=== PATIENT | female | born 1955 | race Caucasian/White ===

== ENCOUNTER → 2017-07-13 | Outpatient (CLI) | payer OTHER ==
[~2017-07-13] MED LIST: LISINOPRIL10 MG; METOPROLOL TAR25 MG
--- NOTE | ~2017-07-13 | MY29 ---
[facility] A Service of [facility] RADIOLOGY TEXT RESULTS PATIENT: LIZA JAVIER LOCATION: [facility] : 57 UNIT #: [id number] AGE: [address]: Mindy Woodruff MD SEX: F ORDER DR: [id number] [facility] [address] [place], [place] [address] [id number] O MR#: [id number] #: [id number] NAME: LIZA JAVIER : 1955 SEX: F STUDY DATE/TIME: 07/13/2017 14:03 UNIT: [facility] ROOM: STUDY DESCRIPTION: MY HUGH SCREENING W/ CAD BILAT Attending Physician: Mindy Woodruff M.D. Referring Physician: Mindy Woodruff M.D. Ordering Physician: Mindy Woodruff M.D. Primary Care Physician: Mindy Woodruff M.D. MEDICAL IMAGING REPORT This report is preliminary unless electronic signature is present EXAM Digital screening mammogram, 07/13/2017, [facility]. HISTORY 61-year-old woman, no risk elevation. Annual screen. COMPARISON Comparison mammograms date to 12/31/2006 with most recent 05/19/2016. FINDINGS Digital imaging of each breast was completed utilizing a two-view examination of each breast in craniocaudal and mediolateral-oblique projections. Review and interpretation of digital mammograms include a second review in conjunction with FDA-approved CAD device. There is a normal parenchymal presentation bilaterally consistent with the patient's age. There are no breast masses imaged and no parenchymal asymmetry is visualized. There are no suspicious microcalcifications and I see no focal architectural disturbance. IMPRESSION Negative screening digital mammogram. One-year followup recommended. Patients over the age of 40 are entered into a reminder system with target due date for the next mammogram. A result letter will also be sent to the patient. BIRADS: 1 Negative. ADDENDUM Breast parenchyma is fatty replaced. [facility] A Service of [facility] RADIOLOGY TEXT RESULTS PATIENT: LIZA JAVIER LOCATION: [facility] : 57 UNIT #: [id number] AGE: [address]: Mindy Woodruff MD SEX: F ORDER DR: Dictated by... Anurag Melton M.D. THIS IS AN ELECTRONICALLY VERIFIED REPORT Anurag Melton M.D. at 07/15/2017 12:02 PM SANDHYA/chi TD: 07/13/2017 19:59 JOB #: [id number] MEDICAL IMAGING REPORT Page 1 of 1 COPY
== END | disposition home or self-care (01) ==
LOC: CWCC 13:40
DX: Z12.31 Encounter for screening mammogram for malignant neoplasm of breast (principal); R92.8 Other abnormal and inconclusive findings on diagnostic imaging of breast
CPT/HCPCS: G0202